=== PATIENT | female | born 1985 | race African-American/Black ===

== ENCOUNTER 2018-10-21 16:35 | Emergency (ER) | payer BC, MEDICAID ==
--- NOTE | 2018-10-21 17:57 | ER Document Report ---
ED Medical Screen (RME) - General Chief Complaint: Vag Bleeding, +preg <12wks Stated Complaint: POSSIBLE MISCARRIAGE Time Seen by Provider: 10/21/18 17:55 Notes: Patient thinks she may be miscarrying. She had her last menstrual cycle at the end of July. G2, P1, A0. She is had a positive home test. Has not had an ultrasound done yet. Says she had some spotting a couple of days ago but not currently having any bleeding. She is complaining of pain in the lower abdomen/pelvic region. TRAVEL OUTSIDE OF THE [place] IN LAST 30 DAYS: No - Related Data Allergies/Adverse Reactions: NKDA Allergy (Uncoded 10/21/18 16:48) Past Medical History - General Last Menstrual Period: End july Renal/ Medical History: Denies: Hx Peritoneal Dialysis Past Surgical History: Reports: Hx Cholecystectomy Physical Exam - Vital signs Vitals: Temp Pulse Resp BP Pulse Ox 98.7 F 81 16 138/73 H 99 10/21/18 16:47 10/21/18 16:47 10/21/18 16:47 10/21/18 16:47 10/21/18 16:47 Course - Vital Signs Vital signs: Temp Pulse Resp BP Pulse Ox 98.7 F 81 16 138/73 H 99 10/21/18 16:47 10/21/18 16:47 10/21/18 16:47 10/21/18 16:47 10/21/18 16:47
[2018-10-21 18:34] LABS: ABSOLUTE BASOPHILS # (AUTO) 0.1 10^3/uL (0.0-0.2); ABSOLUTE EOSINOPHILS # (AUTO) 0.1 10^3/uL (0.0-0.6); ABSOLUTE LYMPHOCYTES (AUTO) 2.7 10^3/uL (0.5-4.7); ABSOLUTE MONOCYTES (AUTO) 0.5 10^3/uL (0.1-1.4); ABSOLUTE NEUT (AUTO) 2.9 10^3/uL (1.7-8.2); BASOPHILS % (AUTO) 1.1 % (0-2); EOSINOPHILS % (AUTO) 1.5 % (0-6); HEMATOCRIT 37.9 % (36.0-47.0); HEMOGLOBIN 12.8 g/dL (12.0-15.5); LYMPHOCYTES % (AUTO) 43.1 % (13-45); MEAN CORPUSCULAR HEMOGLOBIN 31.2 pg (27.0-33.4); MEAN CORPUSCULAR HGB CONC 33.8 g/dL (32.0-36.0); MEAN CORPUSCULAR VOLUME 93 fl (80-97); MONOCYTES % (AUTO) 7.4 % (3-13); PLATELET COUNT 243 10^3/uL (150-450); RED CELL DISTRIBUTION WIDTH 13.3 % (11.5-14.0); SEGMENTED NEUTROPHILS % (AUTO) 46.9 % (42-78); TOTAL CELLS COUNTED % (AUTO) 100 %; WHITE BLOOD COUNT 6.2 10^3/uL (4.0-10.5)
--- NOTE | 2018-10-21 20:36 | RADIOLOGY REPORT (SQ) ---
EXAM DESCRIPTION: U/S OB TRANSVAG W/DOPPLER COMPLETED DATE/TIME: 10/21/2018 8:03 pm REASON FOR STUDY: , spotting and cramping COMPARISON: None. TECHNIQUE: Transvaginal static and realtime grayscale images acquired of the pelvis. Additional eloise cted spectral and color Doppler images recorded. All images stored on PACs. CLINICAL AGE: Unknown, LMP 08/22/2018 [facility] [place]: None. FINDINGS: UTERUS: No visualized intrauterine . RIGHT ADNEXA: Right ovary not visualized. No adnexal free fluid. No adnexal masses. LEFT ADNEXA: Left ovary enlarged containing multiple cysts measuring up to 3.9 cm, measuring 5.4 x 5 point 6 x 4.8 cm. Arterial and venous Doppler flow is identified. No adnexal free fluid. No adnexal masses. FREE FLUID: None. OTHER: Multiple small nabothian cysts of the cervix. IMPRESSION: No intrauterine identified. Early of uncertain location. Ectopic p regnancy is not strictly excluded. Recommend close clinical follow-up, ectopic precautions, serial b eta HCG, and consideration of follow-up ultrasound in 7 to 14 days to ensure resolution of or continued development and viability. TECHNICAL DOCUMENTATION: JOB ID: [id number] [employer]- All Rights Reserved Reading location - IP/workstation name: [email or web address]
--- NOTE | 2018-10-21 23:20 | ER Document Report ---
ED GI/ - General Chief Complaint: Vag Bleeding, +preg <12wks Stated Complaint: POSSIBLE MISCARRIAGE Time Seen by Provider: 10/21/18 17:55 Mode of Arrival: Ambulatory Information source: Patient Notes: Patient is a 33-year-old female comes emergency room states that she took her first test just before and it turned out to be negative. She then took it again 3 weeks later which is a week short of Afua and it turned out positive. Patient's original last known period was at the end of July. She states she has had some cramping this been going on for the last couple of days 2 days ago she also spotted a little after she wiped. Then it stopped and then 2 days later it started again and is stopped and she has had this discomfort and pain in the lower stomach and low back ever since. So the last time she bled was 2 days ago. Patient is currently 2 and para 1. She states that she went to her [facility] today which [facility] earlier today and before she even got into the door asked what was going on and they recommended she come to the emergency room. Patient is not been on any control. Currently she states that she is having no discomfort or pain. TRAVEL OUTSIDE OF THE [place] IN LAST 30 DAYS: No - HPI Patient complains to provider of: Urinary retention, Vaginal bleeding Onset: Other - About 4 days ago Timing/Duration: Gradual, Intermittent Quality of pain: Achy Severity at maximum: Moderate Severity in ED: Mild Pain Level: 1 Context: Location: Low back, Suprapubic Vaginal bleeding (Compared to normal period): Spotting Menstrual period history: Abnormal LMP: End july : 2 Para: 1 Abortions: 0 OB ultrasound done: Yes Sexual history: Active Associated symptoms: denies: Painful intercourse Exacerbated by: Denies Relieved by: Denies Similar symptoms previously: No Recently seen / treated by doctor: No - Related Data Allergies/Adverse Reactions: NKDA Allergy (Uncoded 10/21/18 16:48) Past Medical History - General Information source: Patient Last Menstrual Period: July - Social History Smoking Status: Never Smoker Cigarette use (# per day): No Chew tobacco use (# tins/day): No Smoking Education Provided: No Frequency of alcohol use: None Drug Abuse: None Lives with: Family Family History: Reviewed & Not Pertinent Patient has suicidal ideation: No Patient has homicidal ideation: No Renal/ Medical History: Denies: Hx Peritoneal Dialysis Past Surgical History: Reports: Hx Cholecystectomy Review of Systems - Review of Systems Constitutional: No symptoms reported EENT: No symptoms reported Cardiovascular: No symptoms reported Respiratory: No symptoms reported Gastrointestinal: No symptoms reported Genitourinary: See HPI, Urgency, Retention Female Genitourinary: , Vaginal bleeding Musculoskeletal: No symptoms reported Skin: No symptoms reported Hematologic/Lymphatic: No symptoms reported Neurological/Psychological: No symptoms reported -: Yes All other systems reviewed and negative Physical Exam - Vital signs Vitals: Temp Pulse Resp BP Pulse Ox 98.7 F 81 16 138/73 H 99 10/21/18 16:47 10/21/18 16:47 10/21/18 16:47 10/21/18 16:47 10/21/18 16:47 Interpretation: Hypertensive - Notes Notes: PHYSICAL EXAMINATION: GENERAL: Patient is well-nourished well-developed obese 33-year-old female who is in no apparent distress on physical examination today. HEAD: Atraumatic, normocephalic. EYES: Pupils equal round and reactive to light, extraocular movements intact, conjunctiva are normal. ENT: Nares patent, oropharynx clear without exudates. Moist mucous membranes. NECK: Normal range of motion, supple without lymphadenopathy LUNGS: Breath sounds clear to auscultation bilaterally and equal. No wheezes ra les or rhonchi. HEART: Regular rate and rhythm without murmurs ABDOMEN: Soft, nontender, nondistended abdomen. No guarding, no rebound. No masses appreciated. Female : Pelvic examination shows normal external external genitalia. Vaginal exam into the vaginal canal shows the mucosa to be moist. There is no sign of bleeding at this point. Full insertion shows her to be anteverted. I was able to see the office and there was a small amount of maroonish blood coming outside of the eyes with some mucoid or clearish discharge. There was some minimal amount at present. Patient had also undergone a transvaginal ultrasound earlier not sure whether this caused any kind of irritation or recurrent bleeding. The rest of the exam was normal. The ossicles appeared closed. With the exception of the leakage of the bloody tinged Musculoskeletal: Normal range of motion, no pitting or edema. No cyanosis. NEUROLOGICAL: Normal speech, normal gait. Normal sensory, motor exams PSYCH: Normal mood, normal affect. SKIN: Warm, Dry, normal turgor, no rashes or lesions noted. Course - Re-evaluation Re-evalutation: 10/21/18 23:23 Patient's pelvic exam was fairly benign there was no surprises in that she had a small amount of blood to appear to be coming from the OS.. The did appear to be closed. OS there were no other abnormal findings besides that small leakage. There was no tenderness to the cervix. Patient is O+ so we do not have to worry about any type of RhoGam. Also her labs were relatively normal her quant was around 4000 and plus which would coincide with a 3-4 weeks probably. At this point healing we can do is serial beta hCGs she [facility]. I am going to give her a prescription to have the beta-hCG drawn on Wednesday and she will also try to get into see her DIE MAKER on that day so they may build to do the quant from her office. Either way patient will have covered by us giving it to her. She will return to ER if she Is Successful in Getting in to See Her DIE MAKER on Wednesday. She Also Knows to Return to ER If She Has Any Major Amount of Bleeding. The Ultrasound Showed No Intrauterine Identified. Early of Uncertain Location Is Her Diagnosis Ectopic Is Not Strictly Excluded. Recommended Close Clinical Follow-Up Ectopic Precautions Serial Beta HCG and Consideration of Follow-Up Ultrasound in 7-14 Days to Ensure Resolution of or Continued Development and Viability. This Is What We Are Going to Do over the Next Few Days. Patient Is Well Aware That We Will Follow the Serial HCGs. That She Does Not Have To Get Any RhoGam and She Will Attempt to See Her DIE MAKER on Wednesday. 10/21/18 23:24 patient's urine came back with just a moderate blood in it and no sign of infection at this time. I am going to discharge patient home as indicated before and we will place her on the precautions to return if she starts free flow bleeding or if she has increased amount of pain or she can see her DIE MAKER on Wednesday and she can come back here for recheck and her quantitative beta-hCG follow-up. 10/22/18 00:24 - Vital Signs Vital signs: Temp Pulse Resp BP Pulse Ox 98.7 F 81 16 138/73 H 99 12/28/18 16:47 10/21/18 16:47 10/21/18 16:47 10/21/18 16:47 10/21/18 16:47 - Laboratory Result Diagrams: 10/21/18 18:11 Laboratory results interpreted by me: 10/21/18 10/21/18 18:11 23:07 Beta HCG, Quant 4320.90 H Urine Ketones 20 H Urine Blood MODERATE H Urine Urobilinogen 2.0 H Discharge - Discharge Clinical Impression: Threatened miscarriage in early Condition: Stable Disposition: HOME, SELF-CARE Instructions: Bleeding During Early ([facility]), Ob-Cushion [facility], ([facility]), Repeat Blood Test ([facility]), Threatened Miscarriage ([facility]) Additional Instructions: Threatened Miscarriage You have been evaluated for a possible miscarriage. At this time, there is no indication that a miscarriage will occur. Most women with your symptoms will go on to have a perfectly normal baby. However, careful observation will be necessary. A miscarriage occurs when the fetus is abnormal. There is no medicine or treatment for it. You should rest in bed until the symptoms have resolved. Do not douche or have sex for at least a week, or until OK'd by the doctor. Call the doctor or return for re-examination if there is an increase in bleeding or cramping, or passage of tissue. Forms: Follow-Up Laboratory Testing, Return to Work Referrals: [facility] [Provider Group] - Follow up as needed
[2018-10-21 23:59] LABS: APPEARANCE,URINE SLIGHTLY-CLOUDY; BILIRUBIN,URINE NEGATIVE (NEGATIVE); COLOR,URINE YELLOW; GLUCOSE, URINE NEGATIVE (NEGATIVE); KETONES,URINE 20 mg/dL (NEGATIVE); LEUKOCYTE ESTERASE,URINE NEGATIVE (NEGATIVE); NITRITE,URINE NEGATIVE (NEGATIVE); PROTEIN,URINE NEGATIVE (NEGATIVE); URINE SPECIFIC GRAVITY 1.028
[2018-10-22 02:04] VITALS: BP 122/62
== END 2018-10-22 00:41 | disposition home or self-care (01) ==
LOC: ER 16:35
DX: O20.0 Threatened abortion (principal); O20.9 Hemorrhage in early pregnancy, unspecified
CPT/HCPCS: 36415; 76817; 81001; 84702; 85025; 86900; 86901; 93976; 99284

== ENCOUNTER → 2018-10-24 | Outpatient (CLI) | payer MEDICAID | LOC: LAB 17:47 | PROVIDERS: ATTEND Physician Assistant | DX: O20.0 Threatened abortion (principal) | CPT/HCPCS: 36415; 84702 ==

== ENCOUNTER 2018-10-30 11:50 | Emergency (ER) | payer MEDICAID ==
[2018-10-30 11:55] VITALS: BP 147/82
--- NOTE | 2018-10-30 12:27 | ER Document Report ---
ED Medical Screen (RME) - General Chief Complaint: Vag Bleeding, +preg <12wks Stated Complaint: VAGINAL BLEEDING Time Seen by Provider: 10/30/18 12:21 TRAVEL OUTSIDE OF THE [place] IN LAST 30 DAYS: No - Related Data Allergies/Adverse Reactions: NKDA Allergy (Uncoded 10/30/18 11:51) Past Medical History - General Last Menstrual Period: end july - Social History Frequency of alcohol use: Rare Drug Abuse: None Renal/ Medical History: Denies: Hx Peritoneal Dialysis Past Surgical History: Reports: Hx Cholecystectomy Physical Exam - Vital signs Vitals: Temp Pulse Resp BP Pulse Ox 98.5 F 86 18 147/82 H 100 10/30/18 11:53 10/30/18 11:53 10/30/18 11:53 10/30/18 11:53 10/30/18 11:53 Course - Re-evaluation Re-evalutation: 10/30/18 12:26 This young woman who presents for evaluation of passage of blood clots in the setting of a of unknown location. Previously she had an ultrasound which did not demonstrated a viable IUP. She did not have an up trending hCG. Today she began passing lots of clots one particularly large clot. Is having some pelvic cramping. Prompted her to come the emergency room. I have seen and evaluated this patient in rapid medical screening exam fashion. I have initiated a evaluation and workup, this patient will require further investigation evaluation and disposition determination by secondary provider. - Vital Signs Vital signs: Temp Pulse Resp BP Pulse Ox 98.5 F 86 18 147/82 H 100 10/30/18 11:53 10/30/18 11:53 10/30/18 11:53 10/30/18 11:53 10/30/18 11:53 Doctor's Discharge - Discharge Referrals: SANTHOSH FLEMING PA-C [Primary Care Provider] - Follow up as needed
[2018-10-30 13:00] LABS: ABSOLUTE EOSINOPHILS # (AUTO) 0.1 10^3/uL (0.0-0.6); ABSOLUTE LYMPHOCYTES (AUTO) 1.7 10^3/uL (0.5-4.7); ABSOLUTE MONOCYTES (AUTO) 0.4 10^3/uL (0.1-1.4); ABSOLUTE NEUT (AUTO) 2.9 10^3/uL (1.7-8.2); EOSINOPHILS % (AUTO) 1.5 % (0-6); HEMATOCRIT 38.3 % (36.0-47.0); HEMOGLOBIN 12.7 g/dL (12.0-15.5); LYMPHOCYTES % (AUTO) 32.2 % (13-45); MEAN CORPUSCULAR HEMOGLOBIN 30.9 pg (27.0-33.4); MEAN CORPUSCULAR HGB CONC 33.1 g/dL (32.0-36.0); MEAN CORPUSCULAR VOLUME 93 fl (80-97); MONOCYTES % (AUTO) 8.7 % (3-13); PLATELET COUNT 249 10^3/uL (150-450); RED BLOOD COUNT 4.11 10^6/uL (3.72-5.28); RED CELL DISTRIBUTION WIDTH 13.4 % (11.5-14.0); SEGMENTED NEUTROPHILS % (AUTO) 56.6 % (42-78); TOTAL CELLS COUNTED % (AUTO) 100 %; WHITE BLOOD COUNT 5.1 10^3/uL (4.0-10.5)
[2018-10-30] MEDS ORDERED: ACETAMINOPHEN 325 MG TABLET PO ONE (13:06)
--- NOTE | 2018-10-30 13:07 | ER Document Report ---
ED General - General Chief Complaint: Vag Bleeding, +preg <12wks Stated Complaint: VAGINAL BLEEDING Time Seen by Provider: 10/30/18 12:21 Notes: Patient is a 33-year-old female, positive test recently, that presents to the emergency department for chief complaint of pelvic cramping, and vaginal bleeding. Patient states she had some pelvic cramping and spotting about a week ago, ultrasound did not reveal IUP, she was advised to monitor her symptoms have a repeat hCG, which was done as an outpatient, and did not trend upward, stayed the same, today she has been having significant pelvic cramping and pain, and continued to have vaginal bleeding over the course of the week, and she is been passing some clots as well. She currently rates her pain as a 6 out of 10, describes as constant and aching and bilateral. She has had associated nausea but no vomiting. No other complaints at this time, denies fevers, chills, night sweats, headache, lightheadedness. Past Medical History: Denies chronic medical conditions Past Surgical History: Cholecystectomy Social History: Denies tobacco, alcohol or drug use. Family History: Reviewed and noncontributory for presenting illness Allergies: Reviewed, see documented allergy list. REVIEW OF SYSTEMS: Other than noted above, the 12 point review of systems was reviewed with the patient and were negative, all pertinent findings are included in the HPI. PHYSICAL EXAMINATION: Vital signs reviewed, nursing noted reviewed. GENERAL: Obese, well-appearing, well-nourished and in no acute distress. HEAD: Atraumatic, normocephalic. EYES: Eyes appear normal, extraocular movements intact, sclera anicteric, conjunctiva are normal. ENT: nares patent, oropharynx clear without exudates. Moist mucous membranes. NECK: Normal range of motion, supple without lymphadenopathy LUNGS: Breath sounds clear to auscultation bilaterally and equal. No wheezes rales or rhonchi. HEART: Regular rate and rhythm without murmurs ABDOMEN: Soft, obese, lower abdominal, tenderness to palpation bilaterally, normoactive bowel sounds. No rebound, guarding, or rigidity. No masses appreci ated. EXTREMITIES: Nontender, good range of motion, no pitting or edema. NEUROLOGICAL: No focal neurological deficits. Moves all extremities spontaneously Motor and sensory grossly intact on exam. PSYCH: Normal mood, normal affect. SKIN: Warm, Dry, normal turgor, no rashes or lesions noted on exposed skin TRAVEL OUTSIDE OF THE [place] IN LAST 30 DAYS: No - Related Data Allergies/Adverse Reactions: NKDA Allergy (Uncoded 10/30/18 11:51) Past Medical History - General Last Menstrual Period: end july - Social History Smoking Status: Never Smoker Frequency of alcohol use: Rare Drug Abuse: None Family History: Reviewed & Not Pertinent Patient has suicidal ideation: No Patient has homicidal ideation: No Renal/ Medical History: Denies: Hx Peritoneal Dialysis Past Surgical History: Reports: Hx Cholecystectomy Physical Exam - Vital signs Vitals: Temp Pulse Resp BP Pulse Ox 98.5 F 86 18 147/82 H 100 10/30/18 11:53 10/30/18 11:53 10/30/18 11:53 10/30/18 11:53 10/30/18 11:53 Course - Re-evaluation Re-evalutation: Patient seen and examined vital signs reviewed. Laboratory data and imaging were ordered as appropriate for the patient's presenting symptoms and complaint, with consideration of any critical or life threatening conditions that may be associated with their obtained history and exam as noted above. Patient was treated with Tylenol, and after finding out results of ultrasound, and decreasing hCG, patient was given a dose of oxycodone 5 mg for her pain and cramping Results were reviewed when available and demonstrated no evidence of extrauterine or intrauterine on ultrasound, hCG was down trending from prior lab draw, no significant anemia. The patient was re-evaluated and was stable and improved, discussed results, and she understood, advised follow-up with women's [facility], patient was agreeable Evaluation was most consistent with miscarriage Results were discussed with the patient at this point, after careful consideration I feel that that patient can be discharged from the emergency department, the patient was educated treatments and reasons to return to the emergency department based on their presumed diagnosis as noted above, they were advised to followup with a primary care physician in 2-3 days. Patient was agreeable to plan of care. *Note is created using voice recognition software and may contain spelling, syntax or grammatical errors. Laboratory 10/30/18 10/30/18 10/30/18 12:34 12:34 12:34 WBC 5.1 RBC 4.11 Hgb 12.7 Hct 38.3 MCV 93 MCH 30.9 MCHC 33.1 RDW 13.4 Plt Count 249 Seg Neutrophils % 56.6 Lymphocytes % 32.2 Monocytes % 8.7 Eosinophils % 1.5 Basophils % 1.0 Absolute Neutrophils 2.9 Absolute Lymphocytes 1.7 Absolute Monocytes 0.4 Absolute Eosinophils 0.1 Absolute Basophils 0.0 Beta HCG, Quant 2676.40 H Total Beta HCG POSITIVE Blood Type O POSITIVE Rhogam Indicated RHOGAM NOT INDICATED Obstetrics Ultrasound 10/30/18 12:47 IMPRESSION: NO VISUALIZED INTRA- OR EXTRAUTERINE . CONSIDERING DECLINE OF BETA HCG, THE POSSIBILITY OF INCOMPLETE CANNOT BE EXCLUDED. FOLLOWUP WITH [facility] STRONGLY RECOMMENDED TO ACCURATELY ASSESS STATUS. - Vital Signs Vital signs: Temp Pulse Resp BP Pulse Ox 98.5 F 86 18 147/82 H 100 10/30/18 11:53 10/30/18 11:53 10/30/18 11:53 10/30/18 11:53 10/30/18 11:53 - Laboratory Result Diagrams: 10/30/18 12:34 Laboratory results interpreted by me: 10/30/18 12:34 Beta HCG, Quant 2676.40 H Discharge - Discharge Clinical Impression: Miscarriage Condition: Stable Disposition: HOME, SELF-CARE Instructions: Miscarriage ([facility]) Additional Instructions: Please follow-up with the [facility], and take the [place] as needed for pain. Monitor for signs of fever, sweats, vomiting, or worsening pain, not controlled with the medications. Referrals: [facility] [Provider Group] - Follow up in 3-5 days
--- NOTE | 2018-10-30 14:30 | RADIOLOGY REPORT (SQ) ---
EXAM DESCRIPTION: U/S OB TRANSVAGINAL W/O DOP COMPLETED DATE/TIME: 10/30/2018 1:50 pm REASON FOR STUDY: pelvic pain, vaginal bleeding, +hcg COMPARISON: None. TECHNIQUE: Transvaginal static and realtime grayscale images acquired of the pelvis. Additional eloise cted spectral and color Doppler images recorded. All images stored on PACs. CLINICAL AGE: 9 weeks 5 days. [facility]10/21/2018: 4320.9 .10/24/2018: 4183.2 . 10/30/2018: 2676.4 LIMITATIONS: None. FINDINGS: UTERUS: The uterus measures 12.1 x 4.8 x 6.2 cm. Endometrium thickened and heterogeneous measuring 1.8 cm. Cervix measures 5.6 cm in length. RIGHT ADNEXA: Nonvisualized. LEFT ADNEXA: Left ovary measures 5.9 x 4.4 x 4.2 cm containing septated cyst measuring 5.1 x 3.8 x 3. 7 cm. FREE FLUID: None. OTHER: No other significant finding. IMPRESSION: NO VISUALIZED INTRA- OR EXTRAUTERINE . CONSIDERING DECLINE OF BETA HCG, THE POSSIBILITY OF INCOMPLETE CANNOT BE EXCLUDED. FOLLOWUP WITH [facility] STRONGLY RECOMMENDED TO ACCURATELY ASSESS STATUS. TECHNICAL DOCUMENTATION: JOB ID: [id number] [email or web address]- All Rights Reserved Reading location - IP/workstation name: [email or web address]
[2018-10-30] MEDS ORDERED: OXYCODONE HCL IR 5 MG TABLET PO ONE (14:59)
[2018-10-30] MEDS ORDERED: HYDROCODONE/ACETAMINOPHEN 5-325 MG (6 TAB/ER DISP) PO PRN (15:02)
== END 2018-10-30 15:11 | disposition home or self-care (01) ==
LOC: ER 11:50
DX: O03.9 Complete or unspecified spontaneous abortion without complication (principal); R10.2 Pelvic and perineal pain; R11.0 Nausea; Z90.49 Acquired absence of other specified parts of digestive tract; E66.9 Obesity, unspecified
CPT/HCPCS: 36415; 76817; 84702; 85025; 86900; 86901; 99284

== ENCOUNTER 2019-06-15 16:48 | Outpatient (CLI) | payer MEDICAID ==
[2019-06-15 17:24] LABS: APPEARANCE,URINE CLEAR; BILIRUBIN,URINE NEGATIVE (NEGATIVE); COLOR,URINE YELLOW; GLUCOSE, URINE NEGATIVE (NEGATIVE); KETONES,URINE 20 mg/dL (NEGATIVE); LEUKOCYTE ESTERASE,URINE NEGATIVE (NEGATIVE); NITRITE,URINE NEGATIVE (NEGATIVE); PROTEIN,URINE NEGATIVE (NEGATIVE); URINE SPECIFIC GRAVITY 1.014; UROBILINOGEN,URINE NEGATIVE mg/dL (<2.0)
[2019-06-15 17:38] LABS: URINE AMPHETAMINES SCREEN NEGATIVE; URINE BARBITURATES SCREEN NEGATIVE; URINE BENZODIAZEPINES SCREEN NEGATIVE; URINE COCAINE SCREEN NEGATIVE; URINE MARIJUANA (THC) SCREEN NEGATIVE; URINE METHADONE SCREEN NEGATIVE; URINE PHENCYCLIDINE SCREEN NEGATIVE
--- NOTE | 2019-06-15 17:49 | Non Stress Test Report ---
Non Stress Test Datetime Report Generated by CPN: 06/15/2019 17:48 DEMOGRAPHIC EGA NST: 32.2 INDICATION Indication for Study: Ordered by Provider VITAL SIGNS Temperature - NST: 98.1 Pulse - NST: 94 RESP - NST: 16 NBPSYS NST: 113 NBPDIA NST: 57 MONITORING Monitor Explained: Monitor Explained; Test Explained; Patient Verbalized Understanding Time on Monitor: 06/15/2019 17:12 Time off Monitor: 06/15/2019 17:41 NST Duration: 29 NST INTERVENTIONS NST Interventions: PO Hydration Physician Notified NST: Dr. Najera BABY A: [id number] BABY A Movement : Present Contraction Frequency : none FHR Baseline : 135 Accelerations : 15X15 Decelerations : None Variability : Moderate 6-25bpm NST Review: Meets Criteria for Reactive NST NST Review and Verified By : C. [place] RN NST Results: Reactive NST COMMENTS NST Comments: MD on unit reviewing FHT strip NST REPORT Report Trigger: Send Report
== END 2019-06-15 17:52 | disposition home or self-care (01) ==
LOC: LC 16:48
PROVIDERS: ATTEND Obstetrics & Gynecology Gynecology
PROC: 4A1HXCZ Monitoring of Products of Conception, Cardiac Rate, External Approach (ICD-10-PCS; principal; 2019-06-15)
DX: Z34.93 Encounter for supervision of normal pregnancy, unspecified, third trimester (principal)
CPT/HCPCS: 59025; 80307; 81001; 87086

== ENCOUNTER 2019-07-21 14:57 | Outpatient (CLI) | payer MEDICAID ==
--- NOTE | 2019-07-21 19:53 | Non Stress Test Report ---
Non Stress Test Datetime Report Generated by CPN: 07/21/2019 19:52 DEMOGRAPHIC EGA NST: 37.3 INDICATION Indication for Study: Gestational Hypertension; Diabetes Mellitus; Ordered by Provider VITAL SIGNS Temperature - NST: 98.3 RESP - NST: 16 MONITORING Monitor Explained: Monitor Explained; Test Explained; Patient Verbalized Understanding Time on Monitor: 07/21/2019 15:10 Time off Monitor: 07/21/2019 16:19 NST Duration: 69 NST INTERVENTIONS NST Interventions: PO Hydration; Reposition Patient Physician Notified NST: J GRAVES, CNM REVIEWED STRIP BABY A: [id number] BABY A Movement : Present Contraction Frequency : OCC FHR Baseline : 130 Accelerations : 15X15 Decelerations : None Variability : Moderate 6-25bpm NST Review: Meets Criteria for Reactive NST NST Review and Verified By : Natalya Huffman RN NST Results: Reactive NST REPORT Report Trigger: Send Report
== END 2019-07-21 18:05 | disposition home or self-care (01) ==
LOC: LC 14:57
PROVIDERS: ATTEND Obstetrics & Gynecology
PROC: 4A1HXCZ Monitoring of Products of Conception, Cardiac Rate, External Approach (ICD-10-PCS; principal; 2019-07-21)
DX: O24.419 Gestational diabetes mellitus in pregnancy, unspecified control (principal); O13.3 Gestational [pregnancy-induced] hypertension without significant proteinuria, third trimester; Z3A.37 37 weeks gestation of pregnancy
CPT/HCPCS: 59025; 82962

== ENCOUNTER 2019-07-28 00:47 | Outpatient (CLI) | payer MEDICAID ==
[2019-07-28 01:22] LABS: APPEARANCE,URINE SLIGHTLY-CLOUDY; BILIRUBIN,URINE NEGATIVE (NEGATIVE); COLOR,URINE YELLOW; GLUCOSE, URINE 50 mg/dL (NEGATIVE); KETONES,URINE 80 mg/dL (NEGATIVE); LEUKOCYTE ESTERASE,URINE NEGATIVE (NEGATIVE); NITRITE,URINE NEGATIVE (NEGATIVE); PROTEIN,URINE 100 mg/dL (NEGATIVE); URINE SPECIFIC GRAVITY 1.031; UROBILINOGEN,URINE NEGATIVE mg/dL (<2.0)
[2019-07-28 02:05] LABS: URINE AMPHETAMINES SCREEN NEGATIVE; URINE BARBITURATES SCREEN NEGATIVE; URINE BENZODIAZEPINES SCREEN NEGATIVE; URINE COCAINE SCREEN NEGATIVE; URINE MARIJUANA (THC) SCREEN NEGATIVE; URINE METHADONE SCREEN NEGATIVE; URINE PHENCYCLIDINE SCREEN NEGATIVE
--- NOTE | 2019-07-28 02:24 | Non Stress Test Report ---
Non Stress Test Datetime Report Generated by CPN: 07/28/2019 02:24 DEMOGRAPHIC EGA NST: 38.3 INDICATION Indication for Study: Ordered by Provider MONITORING Monitor Explained: Monitor Explained; Test Explained; Patient Verbalized Understanding Time on Monitor: 07/28/2019 01:05 Time off Monitor: 07/28/2019 01:26 NST Duration: 21 NST INTERVENTIONS NST Interventions: PO Hydration Physician Notified NST: Dr. Rubin BABY A: [id number] BABY A Movement : Present Contraction Frequency : 5-6 FHR Baseline : 130 Accelerations : 15X15 Decelerations : None Variability : Moderate 6-25bpm NST Review: Meets Criteria for Reactive NST NST Review and Verified By : Natalya Huffman RN NST Results: Reactive NST REPORT Report Trigger: Send Report
== END 2019-07-28 02:44 | disposition home or self-care (01) ==
LOC: LC 00:47
PROVIDERS: ATTEND Obstetrics & Gynecology
PROC: 4A1HXCZ Monitoring of Products of Conception, Cardiac Rate, External Approach (ICD-10-PCS; principal; 2019-07-28)
DX: O47.1 False labor at or after 37 completed weeks of gestation (principal); Z3A.38 38 weeks gestation of pregnancy
CPT/HCPCS: 59025; 80307; 81005

== ENCOUNTER 2019-08-01 12:50 | Inpatient (IN) | payer MEDICAID ==
--- NOTE | 2019-08-01 13:47 | Admission Physical ---
Datetime Report Generated by CPN: 08/01/2019 13:47 CURRENT ADMISSION Hx Assessment: The History has been Reviewed and is Current Chief Complaint: Signs/Symptoms Gestational HTN Chief Complaint Other: Pre-eclampsia Indication for Induction: Eclampsia - Moderate Admit Impression : Term, Intrauterine ; No Active Labor Admit Plan: Admit to Unit; Initiate Labor Induction Protocol ALLERGIES Medication Allergies: No Medication Allergies: No Known Allergies (07/28/2019) OBSTETRICAL HISTORY EDC: 08/08/2019 00:00 : 3 Para: 1 Livin Gestational Diabetes: Yes Rh Sensitization: No Incompetent Cervix: No TRUE: No Infertility: No ART Treatment: No Uterine Anomaly: No IUGR: No Hx Previous C/S: No Macrosomia: No Hx Loss/Stillborn: No PIH: No Hx : No Placenta Previa/Abruption: No Depression/PP Depression: No PTL/PROM: No Post Hemorrhage: No Current Procedures: Ultrasound; NST Obstetrical History Comments: G1: 2005 G2: 10/2018 SAB G3: current, GDM on glyburide, late to [facility] based on 28 week sono MEDICAL HISTORY Diabetes: Yes Diabetes Type: Gestational Diabetes Blood Transfusion: No Pulmonary Disease (Asthma, TB): No Breast Disease: No Hypertension: Yes Candy Counter Clerk Surgery: No Heart Disease: No Hosp/Surgery: Yes Autoimmune Disorder: No Anesthetic Complications: No Kidney Disease: No Abnormal Pap Smear: No Neuro/Epilepsy: No Psychiatric Disorders: No Other Medical Diseases: No Hepatitis/Liver Disease: No Significant Family History: No Varicosities/Phlebitis: No Trauma/Violence : No Thyroid Dysfunction: No Medical History Comments: gallbladder removed, childbirth, gestational hypertension 8/1 24 hr urine 639 INFECTIOUS HISTORY Gonorrhea: No Genital Herpes: No Chlamydia: No Tuberculosis: No Syphilis: No Hepatitis: No HIV/AIDS Exposure: No Rash or Viral Illness: No HPV: No PHYSICAL EXAM General: Normal HEENT: Deferred Neurologic: Normal Thyroid: Deferred Heart: Normal Lungs: Normal Breast: Normal Back: Normal Abdomen: Normal Genitourinary Exam: Normal Extremities: Normal DTRs: Normal Pelvic Type: Adequate Physical Exam Comments: Pelvis proven for 04-03 39 weeks 24 hr ua = 639 on 05-25-19 Late Care @ 28 weeks GDM on glyburide GBS neg Vital Signs: Reviewed MEMBRANES Membranes: Intact FETUS A EGA: 39.0 Monitoring: External US Variability: Moderate 6-25bpm Accelerations: 15X15 Decelerations: None FHR Category: Category I Admit Comment: Admitted to LD for IOL for pre-eclampsia, blood pressure elevated in office and sent to LD for evaluation, BP's elevated here, discussed Pitocin induction, pt agrees no headache. blurred vision Plan: Admit. Pitocin INFORMED CONSENT Assignment: Chrystal Avery MD Signature: with User ID: [email or web address] : with User ID: [email or web address]
[2019-08-01 13:57] LABS: APPEARANCE,URINE CLEAR; BILIRUBIN,URINE NEGATIVE (NEGATIVE); COLOR,URINE YELLOW; GLUCOSE, URINE NEGATIVE (NEGATIVE); KETONES,URINE 20 mg/dL (NEGATIVE); LEUKOCYTE ESTERASE,URINE NEGATIVE (NEGATIVE); NITRITE,URINE NEGATIVE (NEGATIVE); PROTEIN,URINE NEGATIVE (NEGATIVE); URINE SPECIFIC GRAVITY 1.013; UROBILINOGEN,URINE NEGATIVE mg/dL (<2.0)
[2019-08-01 14:03] LABS: ABSOLUTE MONOCYTES (AUTO) 0.4 10^3/uL (0.1-1.4); ABSOLUTE NEUT (AUTO) 3.7 10^3/uL (1.7-8.2); BASOPHILS % (AUTO) 0.3 % (0-2); EOSINOPHILS % (AUTO) 0.6 % (0-6); HEMATOCRIT 33.7 % (36.0-47.0); HEMOGLOBIN 11.1 g/dL (12.0-15.5); LYMPHOCYTES % (AUTO) 19.7 % (13-45); MEAN CORPUSCULAR VOLUME 91 fl (80-97); PLATELET COUNT 107 10^3/uL (150-450); RED BLOOD COUNT 3.71 10^6/uL (3.72-5.28); SEGMENTED NEUTROPHILS % (AUTO) 72.4 % (42-78); TOTAL CELLS COUNTED % (AUTO) 100 %; WHITE BLOOD COUNT 5.1 10^3/uL (4.0-10.5)
[2019-08-01 14:09] LABS: UR PRO/CREAT RATIO RESULT 0.3 mg/mg (0.0-0.2); URINE CREATININE 65.9 mg/dL (16-327); URINE PROTEIN 22.3 mg/dL (<12)
[2019-08-01 14:10] LABS: URINE AMPHETAMINES SCREEN NEGATIVE; URINE BARBITURATES SCREEN NEGATIVE; URINE BENZODIAZEPINES SCREEN NEGATIVE; URINE COCAINE SCREEN NEGATIVE; URINE MARIJUANA (THC) SCREEN NEGATIVE; URINE METHADONE SCREEN NEGATIVE; URINE PHENCYCLIDINE SCREEN NEGATIVE
[2019-08-01 14:24] LABS: ALBUMIN 3.1 g/dL (3.5-5.0); ALKALINE PHOSPHATASE 173 U/L (38-126); ANION GAP 8 (5-19); ASPARTATE AMINO TRANSFERASE 24 U/L (14-36); BILIRUBIN,DIRECT 0.1 mg/dL (0.0-0.4); BILIRUBIN,TOTAL 0.3 mg/dL (0.2-1.3); BLOOD UREA NITROGEN 9 mg/dL (7-20); CALCIUM 9.5 mg/dL (8.4-10.2); CARBON DIOXIDE 21 mmol/L (22-30); CHLORIDE 105 mmol/L (98-107); GLUCOSE 127 mg/dL (75-110); POTASSIUM 3.8 mmol/L (3.6-5.0); URIC ACID 4.8 mg/dL (2.5-6.2)
[2019-08-01] MEDS ORDERED: MISOPROSTOL 0.2 MG TABLET ONE (15:35)
[2019-08-01] MEDS ORDERED: OXYTOCIN/NORMAL SALINE 20 UNIT/1,000 ML RTUINJ ONE (15:35)
[2019-08-01] MEDS ORDERED: OXYTOCIN 10 UNIT/ML VIAL ONE ×2 (15:35→21:39)
[2019-08-01] MEDS ORDERED: LIDOCAINE 1% INJ-PF (10 MG/ML) 30 ML SDV ONE (15:35)
[2019-08-01] MEDS ORDERED: OXYTOCIN/NORMAL SALINE 20 UNIT/1,000 ML RTUINJ IV PRN ×2 (16:21→22:22)
[2019-08-01] MEDS ORDERED: RINGERS SOLUTION,LACTATED 300 ML IV ONE (16:21)
[2019-08-01] MEDS ORDERED: HYDRALAZINE HCL INJ/PF 20 MG/1 ML SDV ONE ×2 (17:31→17:57)
[2019-08-01] MEDS ORDERED: ACETAMINOPHEN 325 MG TABLET ONE (17:46)
[2019-08-01] MEDS: RINGERS SOLUTION,LACTATED 1,000 ML IV PRN (17:53)
[2019-08-01] MEDS ORDERED: LABETALOL HCL INJ 20 MG/4 ML DISP.SYRIN IV ONE (18:22)
[2019-08-01] MEDS ORDERED: MAGNESIUM SULFATE 4 GM/100 ML RTUPB IV ONE (18:23)
[2019-08-01] MEDS ORDERED: MAGNESIUM SULFATE 20 GM/500 ML RTUINJ IV ONE (18:23)
[2019-08-01] MEDS ORDERED: PHENYLEPHRINE HCL INJ/PF 10 MG/1 ML SDV ONE ×2 (20:18→21:39)
[2019-08-01] MEDS ORDERED: FENTANYL CITRATE INJ/PF 100 MCG/2 ML AMPUL ONE ×4 (20:19→23:15)
[2019-08-01] MEDS ORDERED: EPHEDRINE SULFATE INJ 50 MG/1 ML AMPULE ONE (20:19)
[2019-08-01] MEDS ORDERED: BUPIVACAINE HCL 0.25 % INJ/PF (2.5 MG/1 ML) 30 ML VIAL ONE (20:19)
[2019-08-01] MEDS ORDERED: FENTANYL/BUPIVACAINE/NS/PF 0 MCG/0 ML RTUINJ EPI ONE (20:19)
[2019-08-01 20:25] LABS: ABSOLUTE EOSINOPHILS # (AUTO) 0.1 10^3/uL (0.0-0.6); ABSOLUTE LYMPHOCYTES (AUTO) 1.6 10^3/uL (0.5-4.7); ABSOLUTE MONOCYTES (AUTO) 0.5 10^3/uL (0.1-1.4); ABSOLUTE NEUT (AUTO) 4.4 10^3/uL (1.7-8.2); BASOPHILS % (AUTO) 0.6 % (0-2); EOSINOPHILS % (AUTO) 0.8 % (0-6); HEMATOCRIT 36.1 % (36.0-47.0); MEAN CORPUSCULAR HEMOGLOBIN 30.2 pg (27.0-33.4); MEAN CORPUSCULAR HGB CONC 33.2 g/dL (32.0-36.0); MEAN CORPUSCULAR VOLUME 91 fl (80-97); MONOCYTES % (AUTO) 7.9 % (3-13); PLATELET COUNT 108 10^3/uL (150-450); RED BLOOD COUNT 3.97 10^6/uL (3.72-5.28); RED CELL DISTRIBUTION WIDTH 14.2 % (11.5-14.0); SEGMENTED NEUTROPHILS % (AUTO) 66.7 % (42-78); TOTAL CELLS COUNTED % (AUTO) 100 %; WHITE BLOOD COUNT 6.6 10^3/uL (4.0-10.5)
[2019-08-01] MEDS ORDERED: CITRIC ACID/SODIUM CITRATE ORAL SOLN 15 ML UDCUP ONE (20:52)
[2019-08-01] MEDS ORDERED: CEFAZOLIN INJ 1 GM VIAL ONE (20:52)
[2019-08-01 20:55] LABS: ANISOCYTOSIS SLIGHT; PLATELET COMMENT ADEQUATE
[2019-08-01 20:56] LABS: PLATELET LARGE PRESENT
[2019-08-01] MEDS ORDERED: AZITHROMYCIN INJ 500 MG VIAL IV ONE (20:58)
[2019-08-01] MEDS ORDERED: KETOROLAC TROMETHAMINE 60 MG/2 ML SDV ONE (21:25)
[2019-08-01] MEDS ORDERED: ONDANSETRON HCL INJ/PF 4 MG/2 ML SDV ONE (21:26)
[2019-08-01] MEDS ORDERED: PROPOFOL INJ 200 MG/20 ML VIAL IV ONE (21:39)
[2019-08-01 21:40] LABS: INTERNATIONAL RATION (INR) 0.87; PROTHROMBIN TIME 11.8 SEC (11.4-15.4)
[2019-08-01 21:41] LABS: PARTIAL THROMBOPLASTIN TIME 29.2 SEC (23.5-35.8)
[2019-08-01] MEDS ORDERED: HYDROMORPHONE HCL INJ/PF 2 MG/ML AMPULE IV PRN (22:22)
[2019-08-01] MEDS ORDERED: OXYCODONE-ACETAMINOPHEN 5-325 MG TABLET PO PRN (22:22)
[2019-08-01] MEDS ORDERED: MEASLES,MUMPS&RUBELLA VACC/PF 0.5 ML VIAL SUBCUT PRN (22:22)
[2019-08-01] MEDS ORDERED: DIPH/PERTUSS(ACELL)/TETANUS VAC/PF 0.5 ML SYR (>=10YO) IM PRN (22:22)
[2019-08-01] MEDS ORDERED: ACETAMINOPHEN 325 MG TABLET PO PRN (22:22)
[2019-08-01] MEDS ORDERED: MEPERIDINE HCL/PF INJ 25 MG/1 ML DISP.SYRIN ONE (22:37)
--- NOTE | 2019-08-02 00:12 | PDOC PROGRESS REPORT ---
Subjective Progress Note for:: 08/02/19 Subjective:: LATE ENTRY: Called to patients room for labor check d/t gush of fluid felt by patient but RN noted blood. ON my exam patient found to have hemorrhage with approximately 1,500 cc total blood loss with clots. VSS. FHT with moderate variability, rate 135 bpm and acels noted. No decelerations. Patient continued to have blood filling vagina and cervix dilated 2-3 cm /-2 station. Discussed abruption with patient and need for CD. RIsks and benefits reviewed . Consent signed. Anesthesia and OR notified. Plan for Level 1 section. Reason For Visit: Physical Exam - Physical Exam Vital Signs: Intake & Output 07/31/19 08/01/19 08/02/19 06:59 06:59 06:59 Weight 150.7 kg Result Laboratory Results: 08/01/19 20:00 08/01/19 13:44 08/01/19 08/01/19 08/01/19 12:59 13:44 13:44 WBC 5.1 RBC 3.71 L Hgb 11.1 L Hct 33.7 L MCV 91 MCH 30.0 MCHC 33.0 RDW 14.0 Plt Count 107 L Seg Neutrophils % 72.4 Sodium 133.9 L Potassium 3.8 Chloride 105 Carbon Dioxide 21 L Anion Gap 8 BUN 9 Creatinine 0.66 Est GFR ( Amer) > 60 Glucose 127 H Uric Acid 4.8 Calcium 9.5 Total Bilirubin 0.3 AST 24 Alkaline Phosphatase 173 H Total Protein 6.0 L Albumin 3.1 L Urine Color YELLOW Urine Appearance CLEAR Urine pH 6.0 Ur Specific [place] 1.013 Urine Protein NEGATIVE Urine Glucose (UA) NEGATIVE Urine Ketones 20 H Urine Blood SMALL H Urine Nitrite NEGATIVE Ur Leukocyte Esterase NEGATIVE Urine WBC (Auto) 0 Urine RBC (Auto) 1 Blood Type Antibody Screen 08/01/19 08/01/19 13:44 20:00 WBC 6.6 RBC 3.97 Hgb 12.0 Hct 36.1 MCV 91 MCH 30.2 MCHC 33.2 RDW 14.2 H Plt Count 108 L Seg Neutrophils % 66.7 Sodium Potassium Chloride Carbon Dioxide Anion Gap BUN Creatinine Est GFR ( Amer) Glucose Uric Acid Calcium Total Bilirubin AST Alkaline Phosphatase Total Protein Albumin Urine Color Urine Appearance Urine pH Ur Specific [place] Urine Protein Urine Glucose (UA) Urine Ketones Urine Blood Urine Nitrite Ur Leukocyte Esterase Urine WBC (Auto) Urine RBC (Auto) Blood Type O POSITIVE Antibody Screen NEGATIVE Assessment & Plan - Time Time Spent with patient: Less than 15 minutes
--- NOTE | 2019-08-02 00:27 | Operative Report ---
Operative Report DATE OF SURGERY: 08/02/19 PREOPERATIVE DIAGNOSIS: IUP at 39 + wks EGA. Obesity. Severe preeclamsia. Pl acental abruption POSTOPERATIVE DIAGNOSIS: Same as above OPERATION: Primary delivery SURGEON: JORDY BUNN ANESTHESIA: GA TISSUE REMOVED OR ALTERED: Placenta to pathology COMPLICATIONS: NOne ESTIMATED BLOOD LOSS: 750cc INTRAOPERATIVE FINDINGS: Normal appearing uterus, bilateral fallopian tubes and ovaries. Placenta grossly visible abruption of 1/3 surface approximately. Viable male with apgars of 9/9 at one and five minutes respectfully PROCEDURE: IV fluids: per anesthesia record Urinary output: 250 cc Findings: Normal-appearing uterus bilateral fallopian tubes and ovaries. Placenta with visible abruption of 1/3 surface grossly. Viable male with Apgars of 8 and 9, at 1 and 5 minutes respectively. Position: To recovery room in stable condition Description of procedure: The patient was taken to the operating room and general anesthesia was administered and found to be adequate. She was then placed on the OR table in the supine position with a slight leftward tilt. Patient was prepped and draped in usual sterile fashion. Ancef 3 gms was given IV prior to the procedure for infection prophylaxis along with Azithromycin 500mg IV x1. Timeout was taken. A Pfannenstiel skin incision was then made approximately 3 cm above the pubic symphysis and carried down to level the rectus fascia. The rectus fascia was then nicked in the midline with a scalpel and the fascial incision was extended laterally with use of curved Stanton scissors. The rectus fascia was then grasped with 2 Kocker clamps elevated and the underlying rectus muscle was dissected off both bluntly and sharply. Scar tissue noted as above. Any bleeding controlled with cautery. The rectus muscles were then split in the midline and the peritoneum was entered. The peritoneal incision was then extended by manually stretching the peritoneum. The bladder blade was positioned. The bladder was noted to be out of harm's way. A scalpel was then used in the lower uterine for the hysterotomy, slowly until amniotomy was obtained a large amount of fluid was noted. The uterine incision was then manually stretched. The infant was noted to be in vertex postion -deep in the pelvis. Using a hand deep in pelvis, the head was elevated and brought to the hysterotomy incision. The head then delivered with minmal difficulty. The shoulders and the rest of the body followed immed iately. The cord was cut clamped and the infant was handed off to the nurse awaiting. Infant was crying prior to hand off. The placenta was manually delivered. Using a lap gauze the uterus was cleared of all clots and debris. An johnny retractor was placed to facilitate closure of uterus. The uterus was then exteriorized and a bladder blade was repositioned. The uterine incision was then closed with 0 Chromic suture in a running locked fashion. A second layer of the same suture was used in a running locked imbricated fashion. The uterine incision was inspected and noted to be hemostatic. Retractor was removed. The posterior aspect of the uterus was then inspected and anatomy was seen as above. The uterus was returned to its normal anatomic position within the abdominal cavity. Warm saline irrigation was used to clear all clots and debris from the abdomen. The uterine incision was inspected once more and noted to remain hemostatic. The bladder blade was removed and the peritoneum was closed with 2-0 chromic in a running fashion. The rectus muscles were then reapproximated and the rectus fascia was closed with a #1 PDS in a running fashion. The subcutaneous tissue was then inspected and any bleeding was controlled with Bovie electrocautery. The subcutaneous tissue was then closed with 2-0 Plain Gut suture in a running fashion. The skin was then closed with 4-0 Monocryl in a ru nning subcuticular fashion. The skin incision was then clean dried and Dermabond was applied over the skin incision. All instrument sponge and needle counts were correct x3 for the procedure the patient tolerated the procedure well. She will proceed to recovery room in stable condition
[2019-08-02] MEDS ORDERED: LABETALOL HCL INJ 20 MG/4 ML DISP.SYRIN IV ONE (02:17)
[2019-08-02] MEDS ORDERED: LABETALOL HCL 200 MG TABLET ONE (02:17)
[2019-08-02] MEDS ORDERED: OXYCODONE-ACETAMINOPHEN 5-325 MG TABLET ONE ×3 (02:35→18:21)
--- NOTE | 2019-08-02 05:45 | Warning Signs in Babies ---
VOD Warning Signs Datetime Report Generated by [facility]: 08/02/2019 05:45 VOD#608 -Warning Signs in Babies: Needs to be viewed. (06/15/2019 16:50:Italia Nieves RN)
[2019-08-02] MEDS ORDERED: IBUPROFEN 800 MG TABLET ONE ×2 (05:48→14:09)
[2019-08-02] MEDS: IBUPROFEN 800 MG TABLET PO SCH ×2 (05:58→14:11)
[2019-08-02] MEDS ORDERED: MAGNESIUM SULFATE 20 GM/500 ML RTUINJ IV ONE ×2 (06:02→17:26)
[2019-08-02 08:30] LABS: HEMATOCRIT 29.1 % (36.0-47.0); MEAN CORPUSCULAR HEMOGLOBIN 30.8 pg (27.0-33.4); MEAN CORPUSCULAR HGB CONC 33.5 g/dL (32.0-36.0); MEAN CORPUSCULAR VOLUME 92 fl (80-97); RED BLOOD COUNT 3.16 10^6/uL (3.72-5.28); WHITE BLOOD COUNT 7.4 10^3/uL (4.0-10.5)
[2019-08-02 08:57] LABS: HEMOGLOBIN 9.7 g/dL (12.0-15.5); PLATELET COUNT 98 10^3/uL (150-450)
[2019-08-02] MEDS ORDERED: FERROUS SULFATE 325 MG TABLET PO ONE (09:58)
[2019-08-02] MEDS ORDERED: PRENATAL VITAMIN W DHA CAPSULE PO ONE (09:58)
[2019-08-02] MEDS ORDERED: DOCUSATE SODIUM 100 MG CAPSULE ONE ×2 (09:58→17:56)
[2019-08-02] MEDS: FERROUS SULFATE 325 MG TABLET PO SCH (10:05)
[2019-08-02] MEDS: PRENATAL VITAMIN W DHA CAPSULE PO SCH (10:05)
[2019-08-02] MEDS: DOCUSATE SODIUM 100 MG CAPSULE PO SCH ×2 (10:05→18:16)
--- NOTE | 2019-08-02 11:22 | PDOC PROGRESS REPORT ---
Subjective-OB Progress Note for:: 08/02/19 - POD #1, pt remains back in Labor and delivery due to being on Magnessium Sulfate drip. Pt A&O x 3, denies headache. s/p primary due to uterine abrubtion Physical Exam (OB) Vital Signs: Intake & Output 08/01/19 08/02/19 08/03/19 06:59 06:59 06:59 Weight 150.7 kg - General General Appearance: Appears well, Alert In distress: None - PIH/Pre-Eclampsia Headache: Absent Epigastric Pain: No Visual Changes: No - Dressing Removed: No - Lochia Lochia Amount: Scant < 10 ml Lochia Color: Rubra/Red - Abdomen Description: Soft Bowel Sounds: Normoactive Fundal Description: Firm Fundal Height: u/u - u/2 - Respiratory Respiratory Status: No respiratory distress Breath sounds: Clear - Cardiovascular Rhythm: Regular Heart Sounds: Normal auscultation - Abdominal Inspection: Normal Distension: No distension - Genitourinary Genitourinary Note: baez cath in place - Extremities Upper extremity: Edema Lower extremities: Edema - Neurological Cognition: Normal Orientation: AAOx4 - Psychological Associated symptoms: Normal affect, Normal mood - Skin Skin Temperature: Warm Skin Moisture: Dry Objective-Diagnostic Laboratory: 08/02/19 07:37 08/01/19 13:44 08/01/19 08/01/19 08/01/19 12:59 13:44 13:44 WBC 5.1 RBC 3.71 L Hgb 11.1 L Hct 33.7 L MCV 91 MCH 30.0 MCHC 33.0 RDW 14.0 Plt Count 107 L Seg Neutrophils % 72.4 Sodium 133.9 L Potassium 3.8 Chloride 105 Carbon Dioxide 21 L Anion Gap 8 BUN 9 Creatinine 0.66 Est GFR ( Amer) > 60 Glucose 127 H Uric Acid 4.8 Calcium 9.5 Total Bilirubin 0.3 AST 24 Alkaline Phosphatase 173 H Total Protein 6.0 L Albumin 3.1 L Urine Color YELLOW Urine Appearance CLEAR Urine pH 6.0 Ur Specific [place] 1.013 Urine Protein NEGATIVE Urine Glucose (UA) NEGATIVE Urine Ketones 20 H Urine Blood SMALL H Urine Nitrite NEGATIVE Ur Leukocyte Esterase NEGATIVE Urine WBC (Auto) 0 Urine RBC (Auto) 1 Blood Type Antibody Screen 08/01/19 08/01/19 08/02/19 13:44 20:00 07:37 WBC 6.6 7.4 RBC 3.97 3.16 L Hgb 12.0 9.7 L D Hct 36.1 29.1 L MCV 91 92 MCH 30.2 30.8 MCHC 33.2 33.5 RDW 14.2 H 14.0 Plt Count 108 L 98 L Seg Neutrophils % 66.7 Sodium Potassium Chloride Carbon Dioxide Anion Gap BUN Creatinine Est GFR ( Amer) Glucose Uric Acid Calcium Total Bilirubin AST Alkaline Phosphatase Total Protein Albumin Urine Color Urine Appearance Urine pH Ur Specific [place] Urine Protein Urine Glucose (UA) Urine Ketones Urine Blood Urine Nitrite Ur Leukocyte Esterase Urine WBC (Auto) Urine RBC (Auto) Blood Type O POSITIVE Antibody Screen NEGATIVE Assessment and Plan(PN) - Assessment and Plan (1) Severe pre-eclampsia Qualifiers: Trimester: third trimester Qualified Code(s): O14.13 - Severe pre- eclampsia, third trimester Is this a current diagnosis for this admission?: Yes (2) Abruptio placenta Qualifiers: Trimester: third trimester Qualified Code(s): O45.93 - Premature separation of placenta, unspecified, third trimester Is this a current diagnosis for this admission?: Yes (3) Acute blood loss anemia Is this a current diagnosis for this admission?: Yes (4) Gestational diabetes Qualifiers: Gestational diabetes mellitus control: diet-controlled Trimester: third trimester Qualified Code(s): O24.410 - Gestational diabetes mellitus in , diet controlled Is this a current diagnosis for this admission?: Yes - Time Spent with Patient Time with patient: Less than 15 minutes - Disposition Anticipated Discharge: Home Within: within 48 hours
[2019-08-02] MEDS: OXYCODONE-ACETAMINOPHEN 5-325 MG TABLET PO PRN ×2 (12:41→18:23)
[2019-08-02] MEDS ORDERED: SIMETHICONE 80 MG TAB.CHEW ONE ×2 (12:43→17:26)
[2019-08-02] MEDS: SIMETHICONE 80 MG TAB.CHEW PO PRN ×2 (12:44→17:33)
[2019-08-02] MEDS ORDERED: HYDROMORPHONE HCL INJ/PF 2 MG/ML AMPULE ONE ×2 (15:11→20:56)
[2019-08-02] MEDS: RINGERS SOLUTION,LACTATED 1,000 ML IV PRN (18:22)
[2019-08-02 19:36] LABS: HEMATOCRIT 29.7 % (36.0-47.0); HEMOGLOBIN 10.1 g/dL (12.0-15.5); MEAN CORPUSCULAR HGB CONC 33.9 g/dL (32.0-36.0); MEAN CORPUSCULAR VOLUME 92 fl (80-97); RED BLOOD COUNT 3.25 10^6/uL (3.72-5.28); RED CELL DISTRIBUTION WIDTH 14.5 % (11.5-14.0); WHITE BLOOD COUNT 6.6 10^3/uL (4.0-10.5)
[2019-08-02 19:57] LABS: PLATELET COUNT 98 10^3/uL (150-450)
[2019-08-02 19:59] LABS: ABSOLUTE LYMPHOCYTES# (MANUAL) 0.3 10^3/uL (0.5-4.7); ABSOLUTE MONOCYTES # (MANUAL) 0.1 10^3/uL (0.1-1.4); BASOPHILS % (MANUAL) 0 % (0-2); EOSINOPHILS % (MANUAL) 0 % (0-6); HYPOCHROMASIA SLIGHT; LYMPHOCYTES % (MANUAL) 4 % (13-45); MONOCYTES % (MANUAL) 2 % (3-13); PLATELET COMMENT DECREASED; SEGMENTED NEUTROPHILS % (MAN) 94 % (42-78); TOTAL CELLS COUNTED 100
[2019-08-03] MEDS ORDERED: PROMETHAZINE HCL INJ 25 MG/1 ML VIAL ONE (00:26)
[2019-08-03] MEDS: PROMETHAZINE HCL INJ 25 MG/1 ML VIAL IV PRN ×2 (00:29→07:45)
[2019-08-03] MEDS: IBUPROFEN 800 MG TABLET PO SCH ×4 (01:28→18:19)
[2019-08-03] MEDS: SIMETHICONE 80 MG TAB.CHEW PO PRN (01:42)
[2019-08-03] MEDS ORDERED: ACETAMINOPHEN WITH CODEINE #3 TABLET PO PRN ×2 (07:59)
[2019-08-03 08:17] LABS: HEMATOCRIT 31.4 % (36.0-47.0); HEMOGLOBIN 10.5 g/dL (12.0-15.5); MEAN CORPUSCULAR HEMOGLOBIN 30.5 pg (27.0-33.4); MEAN CORPUSCULAR HGB CONC 33.6 g/dL (32.0-36.0); MEAN CORPUSCULAR VOLUME 91 fl (80-97); PLATELET COUNT 139 10^3/uL (150-450); RED BLOOD COUNT 3.45 10^6/uL (3.72-5.28); RED CELL DISTRIBUTION WIDTH 14.4 % (11.5-14.0); WHITE BLOOD COUNT 7.2 10^3/uL (4.0-10.5)
[2019-08-03] MEDS: NIFEDIPINE 30 MG TAB.ER.24 PO SCH (08:30)
[2019-08-03] MEDS ORDERED: ONDANSETRON HCL INJ/PF 4 MG/2 ML SDV ONE ×2 (10:34→13:54)
[2019-08-03] MEDS ORDERED: ONDANSETRON HCL INJ/PF 4 MG/2 ML SDV IV ONE ×2 (10:50→14:00)
--- NOTE | 2019-08-03 11:22 | PDOC PROGRESS REPORT ---
Subjective-OB Progress Note for:: 08/03/19 Physical Exam (OB) Vital Signs: Temp Pulse Resp BP Pulse Ox 98.0 F 104 H 16 163/97 H 99 08/03/19 08:00 08/03/19 08:00 08/03/19 08:00 08/03/19 08:00 08/03/19 08:00 Intake & Output 08/02/19 08/03/19 08/04/19 06:59 06:59 06:59 Intake Total 1000 400 Output Total 550 Balance 1000 400 -550 Weight 150.7 kg - PIH/Pre-Eclampsia DTR's: 1 + Clonus: Negative Headache: Absent Epigastric Pain: No Visual Changes: No - Dressing Removed: No - Opsite 30% saturated with sanguinous drainage Incision: Dressing, Draining Note: Red blood on opsite - Lochia Lochia Amount: Scant < 10 ml Lochia Color: Rubra/Red - Abdomen Description: Tender, Soft Hernia Present: No Bowel Sounds: Normoactive Flatus Presence: Present Stool: No Fundal Description: Firm, Midline Fundal Height: u/u - u/2 Objective-Diagnostic Laboratory: 08/03/19 07:55 08/01/19 13:44 08/02/19 08/03/19 19:20 07:55 WBC 6.6 7.2 RBC 3.25 L 3.45 L Hgb 10.1 L 10.5 L Hct 29.7 L 31.4 L MCV 92 91 MCH 31.0 30.5 MCHC 33.9 33.6 RDW 14.5 H 14.4 H Plt Count 98 L 139 L Seg Neutrophils % Not Reportable Assessment and Plan(PN) - Disposition Anticipated Discharge: Home
[2019-08-03] MEDS: FERROUS SULFATE 325 MG TABLET PO SCH (12:26)
[2019-08-03] MEDS: PRENATAL VITAMIN W DHA CAPSULE PO SCH (12:26)
[2019-08-03] MEDS: DOCUSATE SODIUM 100 MG CAPSULE PO SCH ×2 (12:26→18:21)
[2019-08-04] MEDS: IBUPROFEN 800 MG TABLET PO SCH ×3 (00:42→12:48)
[2019-08-04] MEDS ORDERED: INFLUENZA QUAD (6MOS+) 2019-20 VAC 0.5 ML SYR IM ONE (08:00)
[2019-08-04] MEDS: FERROUS SULFATE 325 MG TABLET PO SCH (09:18)
[2019-08-04] MEDS: PRENATAL VITAMIN W DHA CAPSULE PO SCH (09:18)
[2019-08-04] MEDS: DOCUSATE SODIUM 100 MG CAPSULE PO SCH (09:18)
[2019-08-04] MEDS: NIFEDIPINE 30 MG TAB.ER.24 PO SCH (09:18)
[2019-08-04 12:29] VITALS: BP 148/86
--- NOTE | 2019-08-04 14:03 | PDOC DISCHARGE SUMMARY ---
Impression - Admit/DC Date/PCP Admission Date/Primary Care Provider: 08/01/19 13:39 JORDY BUNN MD Discharge Date: 08/04/19 - Additional Information Discharge Diet: Regular Discharge Activity: Balance Activity w/Rest, No Lifting Over 10 Pounds, No Lifting/Push/Pulling, Pelvic Rest, No tub bath Referrals: [facility] [Provider Group] (1 week follow up for BP and incision check.) Prescriptions: Ibuprofen [Motrin 800 mg Tablet] 800 mg PO Q8HP PRN #60 tablet PRN Reason: Nifedipine [Procardia XL 30 mg Tablet] 30 mg PO QAM #30 tab.er.24 Acetaminophen with Codeine [Tylenol #3 Tablet] 1 each PO Q4HP PRN #30 tablet PRN Reason: Home Medications: Vits96/Iron Fum/Folic [ Tablet] 1 each PO DAILY 06/15/19 Acetaminophen with Codeine [Tylenol #3 Tablet] 1 each PO Q4HP PRN #30 tablet 08/04/19 Ibuprofen [Motrin 800 mg Tablet] 800 mg PO Q8HP PRN #60 tablet 08/04/19 Nifedipine [Procardia XL 30 mg Tablet] 30 mg PO QAM #30 tab.er.24 08/04/19 HPI Gestational Age: 39 Reason(s) for Admission: Induction of Labor - for preeclampsia and GDM A2 Procedures: NST Intrapartum Procedure(s): : Low Cervical, Transverse Hospital Course Hospital Course: admitted for IOL secondary to preeclampsia with severe features and GDM A2, was found to have large gush of blood during the course of the IOL for which she underwent a primary LTCS. also complicated by late to care at 28w Results Laboratory Results: WBC 7.2 10^3/uL (4.0-10.5) 08/03/19 07:55 RBC 3.45 10^6/uL (3.72-5.28) L 08/03/19 07:55 Hgb 10.5 g/dL (12.0-15.5) L 08/03/19 07:55 Hct 31.4 % (36.0-47.0) L 08/03/19 07:55 MCV 91 fl (80-97) 08/03/19 07:55 MCH 30.5 pg (27.0-33.4) 08/03/19 07:55 MCHC 33.6 g/dL (32.0-36.0) 08/03/19 07:55 RDW 14.4 % (11.5-14.0) H 08/03/19 07:55 Plt Count 139 10^3/uL (150-450) L 08/03/19 07:55 Lymph % (Auto) Not Reportable 08/02/19 19:20 Pierce % (Auto) Not Reportable 08/02/19 19:20 Eos % (Auto) Not Reportable 08/02/19 19:20 Baso % (Auto) Not Reportable 08/02/19 19:20 Absolute Neuts (auto) Not Reportable 08/02/19 19:20 Absolute Lymphs (auto) Not Reportable 08/02/19 19:20 Absolute Monos (auto) Not Reportable 08/02/19 19:20 Absolute Eos (auto) Not Reportable 08/02/19 19:20 Absolute Basos (auto) Not Reportable 08/02/19 19:20 Total Counted 100 08/02/19 19:20 Seg Neutrophils % Not Reportable 08/02/19 19:20 Seg Neuts % (Manual) 94 % (42-78) H 08/02/19 19:20 Lymphocytes % (Manual) 4 % (13-45) L 08/02/19 19:20 Monocytes % (Manual) 2 % (3-13) L 08/02/19 19:20 Eosinophils % (Manual) 0 % (0-6) 08/02/19 19:20 Basophils % (Manual) 0 % (0-2) 08/02/19 19:20 Abs Neuts (Manual) 6.2 10^3/uL (1.7-8.2) 08/02/19 19:20 Abs Lymphs (Manual) 0.3 10^3/uL (0.5-4.7) L 08/02/19 19:20 Abs Monocytes (Manual) 0.1 10^3/uL (0.1-1.4) 08/02/19 19:20 Absolute Eos (Manual) 0.0 10^3/uL (0.0-0.6) 08/02/19 19:20 Abs Basophils (Manual) 0.0 10^3/uL (0.0-0.2) 08/02/19 19:20 Large Platelets PRESENT 08/01/19 20:00 Platelet Comment DECREASED 08/02/19 19:20 Hypochromasia SLIGHT 08/02/19 19:20 Anisocytosis SLIGHT 08/01/19 20:00 PT 11.8 SEC (11.4-15.4) 08/01/19 21:12 INR 0.87 08/01/19 21:12 APTT 29.2 SEC (23.5-35.8) 08/01/19 21:12 Sodium 133.9 mmol/L (137-145) L 08/01/19 13:44 Potassium 3.8 mmol/L (3.6-5.0) 08/01/19 13:44 Chloride 105 mmol/L (98-107) 08/01/19 13:44 Carbon Dioxide 21 mmol/L (22-30) L 08/01/19 13:44 Anion Gap 8 (5-19) 08/01/19 13:44 BUN 9 mg/dL (7-20) 08/01/19 13:44 Creatinine 0.66 mg/dL (0.52-1.25) 08/01/19 13:44 Est GFR ( Amer) > 60 (>60) 08/01/19 13:44 Est GFR (MDRD) Non-Af > 60 (>60) 08/01/19 13:44 Glucose 127 mg/dL (75-110) H 08/01/19 13:44 Uric Acid 4.8 mg/dL (2.5-6.2) 08/01/19 13:44 Calcium 9.5 mg/dL (8.4-10.2) 08/01/19 13:44 Total Bilirubin 0.3 mg/dL (0.2-1.3) 08/01/19 13:44 Direct Bilirubin 0.1 mg/dL (0.0-0.4) 08/01/19 13:44 Neonat Total Bilirubin Not Reportable 08/01/19 13:44 Neonat Direct Bilirubin Not Reportable 08/01/19 13:44 Neonat Indirect Bili Not Reportable 08/01/19 13:44 AST 24 U/L (14-36) 08/01/19 13:44 ALT 19 U/L (<35) 08/01/19 13:44 Alkaline Phosphatase 173 U/L (38-126) H 08/01/19 13:44 Lactate Dehydrogenase 153 U/L (120-246) 08/01/19 13:44 Total Protein 6.0 g/dL (6.3-8.2) L 08/01/19 13:44 Albumin 3.1 g/dL (3.5-5.0) L 08/01/19 13:44 Urine Color YELLOW 08/01/19 12:59 Urine Appearance CLEAR 08/01/19 12:59 Urine pH 6.0 (5.0-9.0) 08/01/19 12:59 Ur Specific [place] 1.013 08/01/19 12:59 Urine Protein NEGATIVE mg/dL (NEGATIVE) 08/01/19 12:59 Urine Glucose (UA) NEGATIVE mg/dL (NEGATIVE) 08/01/19 12:59 Urine Ketones 20 mg/dL (NEGATIVE) H 08/01/19 12:59 Urine Blood SMALL (NEGATIVE) H 08/01/19 12:59 Urine Nitrite NEGATIVE (NEGATIVE) 08/01/19 12:59 Urine Bilirubin NEGATIVE (NEGATIVE) 08/01/19 12:59 Urine Urobilinogen NEGATIVE mg/dL (<2.0) 08/01/19 12:59 Ur Leukocyte Esterase NEGATIVE (NEGATIVE) 08/01/19 12:59 Urine WBC (Auto) 0 /HPF 08/01/19 12:59 Urine RBC (Auto) 1 /HPF 08/01/19 12:59 Urine Bacteria (Auto) TRACE /HPF 08/01/19 12:59 Squamous Epi Cells Auto <1 /HPF 08/01/19 12:59 Urine Mucus (Auto) RARE /LPF 08/01/19 12:59 Urine Creatinine 65.9 mg/dL (16-327) 08/01/19 12:59 Protein/Creatinin Ratio 0.3 mg/mg (0.0-0.2) H 08/01/19 12:59 Urine Total Protein 22.3 mg/dL (<12) H 08/01/19 12:59 Urine Ascorbic Acid NEGATIVE (NEGATIVE) 08/01/19 12:59 Urine Opiates Screen NEGATIVE 08/01/19 12:59 Urine Methadone Screen NEGATIVE 08/01/19 12:59 Ur Barbiturates Screen NEGATIVE 08/01/19 12:59 Ur Phencyclidine Scrn NEGATIVE 08/01/19 12:59 Ur Amphetamines Screen NEGATIVE 08/01/19 12:59 U Benzodiazepines Scrn NEGATIVE 08/01/19 12:59 Urine Cocaine Screen NEGATIVE 08/01/19 12:59 U Marijuana (THC) Screen NEGATIVE 08/01/19 12:59 RPR NONREACTIVE (NONREACTIVE) 08/01/19 13:44 Blood Type O POSITIVE 08/01/19 13:44 Antibody Screen NEGATIVE 08/01/19 13:44 Plan Plan of Treatment: return to [facility] in 1 week for BP check and incision check. discharged on procardia 30mg XL daily
--- NOTE | 2019-08-07 15:08 | Delivery Summary ---
Del Sum A-C Datetime Report Generated by CPN: 08/07/2019 15:07 DELIVERY PERSONNEL DELIVERY PERSONNEL: [id number] Delivery Doctor:: marion levi Delivery Doctor:: Dr. Levi Anesthesiologist:: binh Anesthesiologist:: Jessica Dodd MD INFORMATION TECHNOLOGY ACCOUNT MANAGER:: Maria Luz Hansen CRNA INFORMATION TECHNOLOGY ACCOUNT MANAGER:: FELTON Braga Labor and Delivery Nurse:: Jose Reyes RNcigarette vendor Nurse:: Erica Leal RN Form Block Maker:: jose reyes Form Block Maker:: Jewel Reyes RN Film Sound Coordinator/CARD GAME OPERATOR: ST Stefanie Film Sound Coordinator/CARD GAME OPERATOR: Ciaracisco Wisdom Film Sound Coordinator/CARD GAME OPERATOR: ciara wisdom CST Film Sound Coordinator/CARD GAME OPERATOR: ST Stefanie MATERNAL INFORMATION Delivery Anesthesia: Epidural Medications After Delivery: Pitocin Drip 20 Units/1000ml NSS Delivery QBL: 1250 Maternal Complications: Abruptio Placenta; Other Complication Details: abruption, preeclampsia Provider Comments: Baby crying and urinating at delivery. Placenta with 1/3 abruption visible grossly. Normal anatomy noted. LABOR SUMMARY EDC: 08/08/2019 00:00 No. Babies in Womb: 1 LABOR INFORMATION Reason for Induction: Pre-Eclampsia Group B Beta Strep: neg Steroids Given: None Reason Steroids Not Administered: Not Applicable MEMBRANES Membranes Rupture Method: Artificial Rupture of Membranes: 08/01/2019 21:17 Length of Rupture (hr): 0.00 Amniotic Fluid Color: Clear Amniotic Fluid Amount: Small Amniotic Fluid Odor: Normal STAGES OF LABOR Stage 3 hr: 0 Stage 3 min: 1 VAGINAL DELIVERY Episiotomy: None Laceration #1: None Laceration Extension #1: N/A Sharps Count Correct: Yes CSECTION DELIVERY Primary Indication: Abruptio Placenta CSection Incision: Lower Uterine Transverse CSection Incision: Lower Uterine Transverse BABY A INFORMATION Delivery Date/Time: 08/01/2019 21:17 Method of Delivery: Born in Route : No : N/A Forceps: N/A Vacuum Extraction: N/A Shoulder Dystocia : No PRESENTATION/POSITION BABY A Presentation: Cephalic Cephalic Presentation: Vertex Breech Presentation: N/A PLACENTA INFORMATION BABY A Placenta Delivery Time : 08/01/2019 21:18 Placenta Method of Delivery: Manual Removal Placenta Status: Delivered SCORES BABY A Heart Rate 1 min: >100 bpm Resp Effort 1 min: Good Cry Reflex Irritability 1 min: Cough or Sneeze or Pulls Away Muscle Tone 1 min: Active Motion Color 1 min: Body [place], Extremities Blue Resuscitation Effort 1 min: Tactile Stimulation SCORE 1 MIN: 9 Heart Rate 5 min: >100 bpm Resp Effort 5 min: Good Cry Reflex Irritability 5 min: Cough or Sneeze or Pulls Away Muscle Tone 5 min: Active Motion Color 5 min: Body [place], Extremities Blue Resuscitation Effort 5 min: Tactile Stimulation SCORE 5 MIN: 9 INFORMATION BABY A Gestational Age at Delivery: 39.1 Gestational Status: Full Term- 39- 40.6 Weeks Infant Outcome : Liveborn Condition : Stable Sex: Male IDENTIFICATION BABY A Verification Date/Time: 08/01/2019 21:17 ID Band Number: [id number] Mother's Name Verified: Yes Infant RN Verifying : jose reyes/ erica adam Additional Verifying Personnel: erica medina WEIGHT/LENGTH BABY A Birthweight (gm): 2980 Weight (lb): 6 Weight (oz): 9 Length (in): 20.00 Infant Length (cm): 50.80 CORD INFORMATION BABY A No. Cord Vessels: 3 Nuchal Cord : N/A ASSESSMENT BABY A Infant Complications: None Physical Findings at Delivery: Within Normal Limits Skin to Skin: No Transferred To: Nursery SIGNATURES Signature: with User ID: Sang : with User ID: Sang
== END 2019-08-04 14:38 | disposition home or self-care (01) | DRG 787 ==
LOC: LC 12:50 → LR 13:39 → 2S 08-03 01:16
PROVIDERS: ADMIT Obstetrics & Gynecology; ATTEND Obstetrics & Gynecology
PROC: 10D00Z1 Extraction of Products of Conception, Low, Open Approach (ICD-10-PCS; principal; 2019-08-02)
PROC: 3E0234Z Introduction of Serum, Toxoid and Vaccine into Muscle, Percutaneous Approach (ICD-10-PCS; 2019-08-04)
PROC: 3E02340 Introduction of Influenza Vaccine into Muscle, Percutaneous Approach (ICD-10-PCS; 2019-08-04)
DX: O14.14 Severe pre-eclampsia complicating childbirth (principal); D62 Acute posthemorrhagic anemia; O45.93 Premature separation of placenta, unspecified, third trimester; O24.425 Gestational diabetes mellitus in childbirth, controlled by oral hypoglycemic drugs; Z37.0 Single live birth; Z3A.39 39 weeks gestation of pregnancy; O99.214 Obesity complicating childbirth; E66.9 Obesity, unspecified; O99.02 Anemia complicating childbirth; Z23 Encounter for immunization
CPT/HCPCS: 1961; 36415; 80053; 80307; 81001; 82570; 83615; 84156; 84550; 85025; 85027; 85610; 85730; 86592; 86850; 86900; 86901; 88307; 90686; 90715; 94799; J0360; J0456; J0690; J1170; J1885; J2175; J2370; J2405; J2550; J2590; J2704; J3010; J3475; J3490